=== PATIENT | female | born 1985 | race Caucasian/White ===

== ENCOUNTER 2016-11-16 04:05 | Emergency (ER) | payer OTHER ==
[~2016-11-16 04:05] MED LIST: ACETAMINOPHEN; ACETAMINOPHEN PO; ACETAMINOPHEN PR; ACETAMINOPHEN650 M1 PO; ALBUTEROL0.83 MG/ML INH; ALBUTEROL17 GM INH; AMOXICILLIN PO; AMOXIL875 MG PO; ASPIRIN PO; B-12; B12 SL; BENZONATATE PO; CELEXA PO; CELEXA10 MG; CELEXA20 MG PO; CHANTIX PO; CIPRO PO; CITRATE OF MAG300 ML PO; COLACE PO; COLESTID PO; CYMBALTA PO; CYMBALTA30 MG PO; DEXILANT30 MG PO; DIAZEPAM PO; DICYCLOMINE HCL20 MG PO; ECHINACEA PO; ECHINACEA80 MG; FLEXERIL PO; FLEXERIL10 MG PO; FLONASE16 GM; HYDROCODON-ACE1 EAC7 PO; IBUPROFEN PO; IMITREX INJ; LACTULOSE10 G/15 ML PO; LEVAQUIN PO; LORTAB 10/500 T1 TAB PO; LORTAB 5/500 TA1 TA1 PO; LORTAB 7.5-5001 TAB PO; MAGNESIUM30 MG PO; MULTI VITAMIN1 EACH PO; NASONEX17 GM; NEURONTIN PO; NEXIUM PO; NORFLEX100 M1 PO; OCEAN45 ML; OMEPRAZOLE40 M1 PO; PEN-VEE K PO; PEPCID PO; PHENERGAN PO; PHENERGAN25 M1 PO; PHENERGAN25 MG; PHENERGAN25 MG PO; PREDNISONE PO; PRENATAL MULTIV1 TA1 PO; PRILOSEC PO; PROMETHAZINE D118 ML PO; PROTONIX PO; PROTONIX20 MG DOB; PROTONIX20 MG PO; PV NEURO VITE T1 TAB PO; PYRIDIUM PO; REGLAN10 MG PO; SUBOXONE 8 MG-1 EAC1 SL; TRAMADOL HCL50 M2 PO; TYLENOL COLD SE1 TAB PO; TYLENOL325 M1 PO; TYLOX1 CAP 5/50 PO; ULTRAM PO; VICODIN 5/500 T1 TAB PO; VICODIN PO; VITAMIN B-121500 MCG PO; VITAMIN B12-FO1 EACH IM; VITAMIN B12-FO1 EACH PO; VITAMIN D250000 UNIT PO; ZITHROMAX PO; ZITHROMAX1 G/PKT PO; ZOFRAN PO; ZYRTEC10 M2 PO; [UNRECOGNIZED DRUG - OTHER]; [UNRECOGNIZED DRUG - OTHER]; [UNRECOGNIZED DRUG - OTHER] PO; [UNRECOGNIZED DRUG - OTHER] PO
[2016-11-16 04:28] LABS: URINE SOURCE CLEAN CATCH
[2016-11-16 04:30] LABS: URINE APPEARANCE CLEAR; URINE BILIRUBIN NEG (NEG); URINE BLOOD 3+ (NEG); URINE COLOR YELLOW; URINE GLUCOSE NEG (NORM); URINE KETONE NEG (NEG); URINE LEUKOCYTE ESTERASE 3+ (NEG); URINE NITRATE POS (NEG); URINE PH 6.5 (5-8); URINE PROTEIN NEG (NEG); URINE SPECIFIC GRAVITY <=1.005 (1.003-1.035); URINE UROBILINOGEN 0.2 MG/DL (NORM)
[2016-11-16 04:32] LABS: MICRO INDICATED? YES
[2016-11-16 04:33] LABS: CULTURE INDICATED? YES; URINE BACTERIA 1+ (NEG); URINE MUCUS PRESENT; URINE SQUAMOUS EPITHELIAL CELL OCCAS /[HPF]
== END 2016-11-16 05:02 | disposition home or self-care (01) ==
LOC: SED 04:05
PROVIDERS: Student in an Organized Health Care Education/Training Program
DX: N30.90 Cystitis, unspecified without hematuria (principal); F31.9 Bipolar disorder, unspecified; F17.200 Nicotine dependence, unspecified, uncomplicated; Z87.442 Personal history of urinary calculi; Z87.440 Personal history of urinary (tract) infections; K50.90 Crohn's disease, unspecified, without complications; Z90.710 Acquired absence of both cervix and uterus
CPT/HCPCS: 81003; 84703; 87086; 87088; 87186; 99283

== ENCOUNTER 2017-01-02 21:55 | Emergency (ER) | payer OTHER ==
[~2017-01-02] VITALS: Ht 180.3 cm; Wt 59.0 kg
== END 2017-01-02 22:25 | disposition home or self-care (01) ==
LOC: SED 21:55
DX: H00.024 Hordeolum internum left upper eyelid (principal); F31.9 Bipolar disorder, unspecified; F17.200 Nicotine dependence, unspecified, uncomplicated; Z88.5 Allergy status to narcotic agent; Z79.899 Other long term (current) drug therapy
CPT/HCPCS: 99283